=== PATIENT | female | born 1950 | race Caucasian/White ===

== ENCOUNTER 2016-06-30 14:58 | Emergency (ER) | payer OTHER ==
[2016-06-30] MEDS ORDERED: LORazepam 2 MG/ML DISP.SYRIN IV ONE (15:22)
[2016-06-30] MEDS ORDERED: METOPROLOL TARTRATE 1 MG/ML AMPUL IV ONE ×2 (15:33→16:28)
[2016-06-30] MEDS ORDERED: HYDROCHLOROTHIAZIDE 25 MG TABLET PO ONE (15:33)
--- NOTE | 2016-06-30 15:37 | ERNOTE ---
Dizziness ER Record Date of Service: 06/30/16 Presenting Symptoms: dizziness, weakness Time Seen by Provider: 06/30/16 15:09 Source: patient, family - Exam Limitations: no limitations Allergies/Adverse Reactions: Allergies Allergy/AdvReac Type Severity Reaction Status Date / Time dye Allergy Uncoded 06/30/16 15:08 Home Medications: HOME MEDICATIONS Nabumetone 500 mg PO DAILY 06/12/12 [Last Taken Unknown] Metoprolol Succinate 50 mg PO DAILY 06/10/13 [Last Taken Unknown] Cholestyramine (with Sugar) [Questran Packet] 4 gm PO DAILY 06/30/16 [Last Taken Unknown] LORazepam [Ativan] 0.5 mg PO Q8H PRN #12 tablet 06/30/16 [Last Taken Unknown] Levothyroxine Sodium [Synthroid] 50 mcg PO DAILY 06/30/16 [Last Taken Unknown] Lisinopril [Zestril] 20 mg PO DAILY 06/30/16 [Last Taken Unknown] Multivitamin [One Daily Essential] 1 each PO DAILY 06/30/16 [Last Taken Unknown] - History of Present Illness Narrative: Patient who comes due to problem in balance and weak since 04:00 today. Patient reported that she has no spinning, has no loss consciousness, and has no nausea. Patient with an on and off headache that comes and goes and is associated with the dizziness. Patient also reported some chest pain. Date (Duration): 06/30/16 Time (Timing): 04:00 Timing and Duration: still present, intermittent Episodes lasting:: Minutes Noted on awakening:: Yes Severity: max: moderate Severity: currently: moderate Associated Symptoms: Present: headache, weakness, numbness, light headedness. Absent: hearing loss, ringing/roaring in ear, ear pain, vomiting, sweating, sense of confusion Sense of movement: Present: none - balance. Absent: spinning, falling, vague, distinct, other Fainted/near fainted while:: Absent: standing, sitting, supine Decreased ability to stand/walk:: Present: off balance Usually:: Present: walks w/o assistance Modifying Factors - (Improves): Reports: nothing Modifying Factors - (Worsens): Reports: nothing Prior Treament: Reports: recently seen - Patient was seen at [place] where an aneurysm was coiled on 2015 Review of Systems - Review of Systems Constitutional: Present: weakness, malaise. Absent: fever, chills EYE: Absent: eye discharge, blurred vision, double vision, vision changes, tearing ENT: Present: no symptoms reported Respiratory: Present: cough Cardiology: Present: chest pain. Absent: syncope, edema Gastrointestinal/Abdominal: Present: no symptoms reported Genitourinary: Present: no symptoms reported Musculoskeletal: Present: no symptoms reported Skin: Present: no symptoms reported Neurological: Present: headache, dizziness/light-headedness, weakness. Absent: anxiety, depressed, emotional problems, seizure, tremors Endocrine: Present: no symptoms reported Hematologic/Lymphatic: Present: no symptoms reported Psych: Present: no symptoms reported All Other Systems: All systems neg except as marked - Patient's Past Medical History Patient History - Medical: Hypothyroidism, Other - History of Multiple Brain Aneurysm Patient History - Cardiac/Respiratory: Hypertension, Hyperlipidemia Patient History - Cancer: No Hx of Cancer Patient History - Other: None - Social History Living Situations: home Psych History: No pertinent hx Drug Use: none Physical Exam - Physical Exam General Appearance: Present: wd/wn, alert, no apparent distress Eye Exam: Normal inspection: bilateral, PERRL: bilateral, EOMI: bilateral, Other : bilateral - Nystagmus noticed Ears, Nose, Throat: Present: normal ENT inspection, normal pharynx Neck: Present: normal inspection, nontender. Absent: carotid bruit Respiratory: Present: no respiratory distress, normal breath sounds, no accessory muscle use, chest nontender, lungs clear Cardiovascular/Chest: Present: regular rate, rhythm, no murmur, normal peripheral pulses. Absent: systolic murmur, JVD Gastrointestinal/Abdominal: Present: normal bowel sounds, nontender, nondistended, soft, no organomegaly Back Exam: Present: normal inspection, normal range of motion, no CVA tenderness , no vertebral tenderness Extremity Exam: Present: normal inspection, non-tender, normal range of motion, no edema Neurological Exam: Present: alert, oriented, it training specialist II-XII nml as tested, other - GCS: 15/15, NIH Stroke Scale: 0 Skin Exam: Present: normal color, warm/dry. Absent: diaphoresis, cyanosis, jaundice, pallor, skin rash Lymphatic Exam: Present: no adenopathy ED Progress - Date and Time Seen: Date and Time: 06/30/16 15:43 Patient MRI/MRA is been delay due to the lack of information regarding the materials used for coiling. At this point we are calling [place] [facility] to get copy of card. Patient send home to get her papers. 06/30/16 17:59 NIH Stroke Scale: 0 Patient with a negative MRI/MRA no ST Elevation. Patient at the moment is feeling better. Patient will follow up with her PCP and Neurosurgeon. Patient at the moment has no neurological deficits. - Results and Orders Patient's Lab Results:: I have reviewed the patient's lab results. Results and Orders: CBC: No anemia CMP: Negative Trop: Negative INR: Normal - Vital Signs Patient's Vital Signs:: I have reviewed the patient's vital signs. Vital Signs: Vital Signs 06/30/16 15:02 Temperature 35.7 C L Pulse Rate 80 Respiratory 12 Rate Blood Pressure 151/115 O2 Sat by Pulse 94 Oximetry - EKG EKG: NSR EKG read: Interp. by me EKG Comments: HR: 72, LAD, No changes since 01/13/2016 - X-Ray X-Ray #1 X-Ray: chest X-ray Comments: Radiologist Report was noticed: No acute processes reported. - CT/Ultrasound CT/Ultrasound Narrative: CT Head: Radiologist report was read: No acute intracranial process. The scan was limited due to Metallic Artifact corresponding to the embolization / coiling of an aneurysm in the region of the [place]. MRI / MRA: Report was read. No acute process reported. - Progress/Reassessment Chief Complaint: Dizziness Progress:: Improved - Transfer of Care Expected Disposition: Discharge Departure Clinical Impression: Dizziness Headache Qualifiers: Headache type: unspecified Headache chronicity pattern: unspecified pattern Intractability: not intractable Qualified Code(s): R51 - Headache - Departure Disposition: Home self-care Condition: Stable Instructions: Vertigo, [id number], Headache and Arthritis, Dizziness, Easy-to -Read Additional Instructions: Please follow with your neurologist and neurosurgeon. Get copy of your MRI/MRA for your next visit. Referrals: Flor Chávez MD [Primary Care Provider] - Prescriptions: LORazepam [Ativan] 0.5 mg PO Q8H PRN #12 tablet PRN Reason: Anxiety
[2016-06-30 15:42] LABS: Hematocrit 40.7 % (37.0-47.0); Hemoglobin 14.5 gm/dL (12.5-16.0); Mean Cell Volume 87.9 fl (78-100); Mean Corpuscular Hemoglobin 31.3 pg (27-31); Mean Corpuscular Hgb Conc 35.6 g/dl (32-36); Neutrophil # 3.6 K/mm3 (1.3-6.0); Neutrophil % 61.5 % (42-75.0); Platelet Count 286 K/mm3 (150-450); Red Blood Count 4.63 M/mm3 (4.2-5.4); Red Cell Distribution Width 13.1 % (11.5-14.0); White Blood Count 5.9 K/mm3 (4.0-10.5)
[2016-06-30 16:01] LABS: Prothrombin Time (Patient) 10.8 Seconds (9.4-11.4)
[2016-06-30 16:07] LABS: Albumin * 4.3 gm/dl (3.4-5.0); Anion Gap 17.4 mmol/L (6.8-13.8); BUN/Creatinine Ratio 15.8 (9.0-21.6); Bilirubin, Total 0.7 mg/dL (0.0-1.1); Ca. Corrected For Albumin 8.6 mg/dL (8.4-10.2); Calcium * 9.2 mg/dL (7.9-10.9); Carbon Dioxide 27.4 mmol/L (24-32.6); Potassium 3.8 mmol/L (3.4-4.6); Total Protein 7.6 gm/dL (6.2-8.2)
[2016-06-30] MEDS ORDERED: HYDROCHLOROTHIAZIDE 25 MG TABLET ONE (16:28)
[2016-06-30 16:30] LABS: INR 1.04 INR (0.90-1.10)
[2016-06-30 16:58] LABS: Partial Thrombolplastin Time 24.4 Seconds (24-32)
[2016-06-30 18:35] VITALS: BP 150/76
== END 2016-06-30 18:34 | disposition home or self-care (01) ==
LOC: ER 14:58
DX: R42 Dizziness and giddiness (principal); R51 Headache; I10 Essential (primary) hypertension; E03.9 Hypothyroidism, unspecified; E78.5 Hyperlipidemia, unspecified; Z87.820 Personal history of traumatic brain injury

== ENCOUNTER 2016-09-22 23:55 | Emergency (ER) | payer OTHER ==
[2016-09-23] MEDS ORDERED: ONDANSETRON 4 MG TAB.RAPDIS PO ONE (00:21)
[2016-09-23] MEDS ORDERED: ACETAMINOPHEN 325 MG TABLET PO ONE (00:21)
[2016-09-23] MEDS ORDERED: traMADol HCL 50 MG TABLET PO ONE (00:21)
[2016-09-23] MEDS ORDERED: traMADol HCL 50 MG TABLET ONE (00:24)
[2016-09-23] MEDS ORDERED: ACETAMINOPHEN 325 MG TABLET ONE (00:25)
[2016-09-23] MEDS ORDERED: ONDANSETRON 4 MG TAB.RAPDIS ONE (00:25)
--- NOTE | 2016-09-23 00:31 | ERNOTE ---
Upper Extremity HPI - General Extremities Pain Location: arm: right Time Seen by Provider: 09/22/16 23:57 Source: patient Exam Limitations: no limitations - Immun/Allergies/Home Medications Allergies/Adverse Reactions: Allergies Allergy/AdvReac Type Severity Reaction Status Date / Time codeine AdvReac Verified 09/23/16 00:08 dye Allergy Uncoded 09/23/16 00:08 Home Medications: HOME MEDICATIONS Cholestyramine (with Sugar) [Questran Packet] 4 gm PO DAILY 09/23/16 [Last Taken Unknown] Fluticasone Propionate [Flovent Hfa] 12 gm IH DAILY 09/23/16 [Last Taken Unknown ] Levothyroxine Sodium [Synthroid] 50 mcg PO DAILY 09/23/16 [Last Taken Unknown] Metoprolol Succinate [Toprol Xl] 50 mg PO DAILY 09/23/16 [Last Taken Unknown] Multivitamin [One Daily Multivitamin] 1 each PO DAILY 09/23/16 [Last Taken Unknown] Nabumetone [Relafen] 500 mg PO DAILY 09/23/16 [Last Taken Unknown] - History of Present Illness Narrative: Patient had her right shoulder replaced at the [facility] on 09/06. She had numbness in her thumb through middle finger post op that has resolved. Over the last two days she has had a mild ache in her arm, around 15:00 it got significantly worse. the pain starts in her right elbow and radiates down to her hand mainly the thumb through middle finger. She denies any injuries, rates the pain as severe, tramadol helped a little. She has kept her arm immobilized as instructed except for doing her exercises three times a day. Occurred: this afternoon Method of Injury: Reports: no apparent injury Associated Symptoms: Denies: tingling, weakness Review of Systems - Review of Systems Constitutional: Present: recent illness - three days ago vomiting and diarrhea for one day, symptoms have resolved. Absent: fever, chills ENT: Absent: sore throat Respiratory: Absent: shortness of breath Cardiology: Absent: chest pain Gastrointestinal/Abdominal: Present: nausea. Absent: vomiting, diarrhea, abdominal pain Genitourinary: Present: no symptoms reported Musculoskeletal: Present: See HPI Neurological: Absent: headache, weakness, numbness - Patient's Past Medical History Patient History - Medical: Arthritis, Hypothyroidism, Other - History of Multiple Brain Aneurysm Patient History - Cardiac/Respiratory: Hypertension, Hyperlipidemia Patient History - Cancer: No Hx of Cancer Patient History - Surgical Procedures: Cholecystectomy, Hysterectomy, Total Knee Replacement Patient History - Other: None - Social History Living Situations: home Psych History: No pertinent hx Smoking Status: Former smoker Alcohol Use: occasionally Drug Use: none - Immunizations Immunizations Up to Date: Yes History of Influenza Vaccine: Yes Physical Exam - Physical Exam General Appearance: Present: wd/wn, alert, no apparent distress, anxious Eye Exam: Normal inspection: bilateral Neck: Present: normal inspection, nontender, supple, full range of motion Respiratory: Present: no respiratory distress, normal breath sounds, no accessory muscle use, lungs clear Cardiovascular/Chest: Present: regular rate, rhythm, no murmur, normal peripheral pulses Peripheral Pulses: N=norm/S=strong/W=weak/B=bound/A=absent: Radial (R): Normal Extremity Exam: Present: normal inspection, other - wound covered, no surrounding erythema, no tenderness, no swelling, normal inspection of remainder of the arm, no significant tenderness to palpation, no pain on ROM, normal limited ROM exam, minimal swelling of fingers, normal sensation and cap refill Neurological Exam: Present: alert, oriented, normal mood/affect, no motor/ sensory deficits Skin Exam: Present: normal color, warm/dry ED Progress - Vital Signs Patient's Vital Signs:: I have reviewed the patient's vital signs. - CT/Ultrasound CT/Ultrasound Narrative: U/S: venous doppler: no DVT , superficial thrombus - Progress/Reassessment Progress Note-Subjective: 09/23/16 01:47 Patient feeling much better after pain medication, discussed ultrasound results 09/23/16 01:53 patient blood pressure elevated, denies headache, has blood pressure cuff at home, discussed taking her medications in the morning and taking her blood pressure an hour later, return to the ER for persistent high blood pressure Departure Clinical Impression: Neuropathic pain S/P shoulder joint replacement Qualifiers: Laterality: unspecified laterality Qualified Code(s): Z96.619 - Presence of unspecified artificial shoulder joint - Departure Disposition: Home self-care Condition: Good Instructions: Shoulder Joint Replacement, Care After, Neuropathic Pain Additional Instructions: take tramadol as instructed take over the counter tylenol (325mg) two tablets four times a day follow up with your surgeon after the weekend as scheduled Referrals: Flor Chávez MD [Primary Care Provider] -
--- OUTSIDE RECORDS SUMMARY | 2016-09-23 00:43 | XMS REPORT | Continuity of Care Document ---
:1950 Author Organization [facility] ([facility]) Address [address] [place] [address] Phone [phone] Care Team Providers Name Role Phone Flor Chávez Primary Care Provider [phone] Source Comments This disclosure is being made pursuant to the Care Everywhere program, applicable federal and state laws, and may not contain all informaitonavailable regarding this patient.[facility] ([facility]) Active Allergies and Adverse Reactions Allergen Noted Date Severity Reactions Comments Codeine 03/09/2016 Nausea & Vomiting Fd And C Blue No.1 11/05/2008 High Anaphylactic Shock Given a dye to look at kidneys, bad reaction Lisinopril 08/29/2016 OTHER Cough Current Medications Prescription Sig. Disp. Refills Start Date End Date Status MULTIVITS take 1 Tab by Active W-CA,FE,OTHER MIN mouth daily. (WOMEN'S DAILY FORMULA PO) cholestyramine 4 Take 4 g by Active gram oral powder mouth daily. estradiol 0.5 mg Take 0.5 mg by Active tablet mouth daily. levothyroxine 50 Take 50 mcg by Active mcg tablet mouth every morning before breakfast. metoPROLol 100 mg daily. 01/28/2016 Active succinate 50 mg XL tablet fluticasone Use 2 Puffs by Active (FLOVENT HFA 44) inhalation 2 inhaler times daily. traMADol 50 mg Take 1 tablet 60 tablet 0 09/07/2016 Active tablet (50 mg total) by mouth every 6 hours as needed for pain. docusate (COLACE) Take 1 capsule 60 capsule 2 09/07/2016 Active 100 mg capsule (100 mg total) by mouth 2 times daily. aspirin 325 mg EC Take 1 tablet 42 tablet 0 09/07/2016 Active tablet (325 mg total) by mouth daily. acetaminophen 325 Take 2 tablets 09/07/2016 Active mg tablet (650 mg total) by mouth every 4 hours as needed (Do not exceed 4000 mg in 24 hours). ondansetron 4 mg Take 1 tablet 20 tablet 0 09/07/2016 Active disintegrating (4 mg total) by tablet mouth every 8 hours as needed. nabumetone 500 mg Take 500 mg by Discontinued tablet mouth daily. 7 acetaminophen 325 Take 325 mg by Discontinued mg tablet mouth every 4 7 hours as needed. lisinopril 20 mg 06/26/2016 Discontinued tablet 7 Active Problems Problem Noted Date Acute blood loss anemia 09/07/2016 PONV (postoperative nausea and vomiting) 09/07/2016 Obesity, Class I, BMI 30-34.9 09/07/2016 HLD (hyperlipidemia) 09/07/2016 HTN (hypertension) 09/07/2016 Hypothyroid 09/07/2016 Chronic right shoulder pain 09/06/2016 Osteoarthritis of right glenohumeral joint 07/19/2016 Cerebral aneurysm, nonruptured 03/09/2016 Left shoulder pain 04/14/2014 Right shoulder pain 07/10/2013 Left knee crepitus 03/18/2013 S/P right unicompartmental knee replacement 11/08/2012 S/P left unicompartmental knee replacement 11/08/2012 Visit for wound check 11/08/2012 H/O seasonal allergies 10/24/2012 Resolved Problems Problem Noted Date Resolved Date Shoulder pain, left 03/06/2013 07/10/2013 Primary osteoarthritis of both knees 10/15/2012 11/08/2012 Knee pain 11/04/2008 11/08/2012 Most Recent Encounters Date Type Specialty Providers Description 09/14/2016 Telephone Orthopaedic Brandon Tejeda V, Chief Comp: Other 09/11/2016 Nurse Triage Care Coordination Hannah Rojas Chief Comp: MARÍA ELENA Cuellar health policy analyst Follow-up Call 09/08/2016 Pharmacy Visit 09/06/2016 - [facility] Care Brandon Tejeda V, Dx: Chronic right 09/08/2016 Encounter Inpatient - Adult shoulder pain (Primary Dx) 09/06/2016 Surgery General Surgery Brandon Tejeda V, ARTHROPLASTY SHOULDER MD STINSON / SARIKA 08/31/2016 Anesthesia Event General Surgery Sho Reina RN 08/30/2016 Orders/Notes Orthopaedic Ralf Koch PA-C 08/29/2016 Office Visit Internal Medicine - Default, Other Dx: Pre-op exam Specialty Billg - Defo (Primary Dx) Meghan Joseph MD ([id number]), Msc Surg Co-Managemnt Cl 08/29/2016 Office Visit Pathology Brandon Tejeda V, Chief Comp: Patient MD Reported Reason For Lab Services, Visit Pfp 08/29/2016 Office Visit Orthopaedic Brandon Tejeda V, Dx: Preop examination MD (Primary Dx) 08/07/2016 Orders/Notes Orthopaedic Brandon Milner, Dx: Chronic right MD shoulder pain (Primary Dx) 07/31/2016 Office Visit Orthopaedic Brandon Tejeda V, Dx: Multiple joint MD pain (Primary Dx) 07/31/2016 [facility], Dx: Right shoulder Encounter Serge Albright MD pain 07/12/2016 Telephone Neurosurgery Marily Hein Chief Comp: Anesthesia Preoperative Screening 07/03/2016 Office Visit Orthopaedic Brandon Tejeda V, Dx: Osteoarthritis of MD right glenohumeral joint (Primary Dx) Social History Tobacco Use Types Packs/Day Years Used Date Former Smoker Cigarettes 0.5 20 Quit: 09/06/1989 Smokeless Tobacco: Never Used Alcohol Use Drinks/Week oz/Week Comments Yes 2 Glasses of wine 1.0 Last Filed Vital Signs Vital Sign Reading Time Taken Blood Pressure 145/79 09/08/2016 7:55 AM CDT Pulse 87 09/08/2016 7:55 AM CDT Temperature 36.1 C (97 F) 09/08/2016 7:55 AM CDT Respiratory Rate 16 09/08/2016 7:55 AM CDT Height 1.626 m (5' 4") 09/06/2016 6:20 PM CDT Weight 81.647 kg (180 lb) 09/06/2016 6:20 PM CDT Body Mass Index 30.88 09/06/2016 6:20 PM CDT Oxygen Saturation 97% 09/08/2016 7:55 AM CDT Plan of Care Date Type Specialty Providers Description 09/26/2016 Appointment Orthopaedic Brandon Tejeda MD [address] [place] [address] [phone] (Fax) Chief Comp: Patient Ralf Koch PA-C [address] [place] [address] [phone] (Fax) Reported Reason For Visit 10/24/2016 Appointment Orthopaedic Brandon Tejeda MD [address] [place] [address] [phone] (Fax) Chief Comp: Patient Ralf Koch PA-C [address] [place] [address] [phone] (Fax) Reported Reason For Visit Health Maintenance Due Date Last Done Comments HCV Screening 1950 Hepatitis B Vaccine (1 of 3 - Primary Series) 1950 Tdap Vaccine 12/26/1963 Lipid Disorder Screening 1970 Td Vaccine 1970 Cervical Cancer Screening 1982 Mammogram 1992 Colonoscopy 2002 Zoster Vaccine 2012 Influenza Vaccine: Seasonal (Season Ended) 2016 Procedures from Last 3 Months Procedure Name Priority Date/Time Associated Diagnosis Comments ABSTRACTED BY Routine 09/21/2016 5:14 Osteoarthritis of Results for this BILLING STAFF PM CDT right glenohumeral procedure are in joint the results section. 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 Results from Last 3 Months ORT OR CASE (09/21/2016 5:14 PM) Narrative Brandon Tejeda MD 09/21/20165:14 PM OR CASE: ARTHROPLASTY SHOULDER BIOMET / BAUM Post-Op Procedure Note Operation/Procedure: Procedure(s) (LRB): ARTHROPLASTY SHOULDER BIOMET / BAUM (Right) General Information: Date: 09/06/16 Time: 1236 Location: MAIN OR OR Room: MAIN OR Service: Orthopaedics Log ID: [id number] Surgeon: Surgeon(s) and Role: * Brandon Tejeda MD - Primary * Monster Moy MD - Resident - Assisting * Ralf Koch PA-C - Physician's Entry Level Account Executive Staff Information: Circulating Nurse: David Quezada, EB; Mer Tejada RN Principal Solutions Architect- Scrub: Trip Jin; Luke Lemus Anesthesia: General with Block for Postop Pain Findings: No unexpected findings, see below. Estimated Blood Loss: less than 100 ml Implants: Implant Name Type Inv. Item Serial No. Roll Grinder Lot No. LRB No. Used Action CEMENT SURGICAL SIMPLEX P RADIOPAQUE BONE 1/2 DOSE - [id number] CEMENT SURGICAL SIMPLEX P RADIOPAQUE BONE 1/2 DOSEHOWMEDICA_INC [id number] Right 1 Implanted SHOULDER GLENOID BASE MEDIUM 4MM HYBRID - [id number] GLENOID BASE MEDIUM 4MM HYBRIDBIOMET_INC [id number] Right 1 Implanted SHOULDER ADAPTER COMPREHENSIVE VERSA-DIAL STANDARD - [id number] SHOULDER ADAPTER COMPREHENSIVE VERSA-DIAL STANDARDBIOMET_INC [id number] Right 1 Implanted SHOULDER PRIMARY STEM COMPREHENSIVE STANDARD LENGTH 11MM - [id number] PRIMARY STEM COMPREHENSIVE STANDARD LENGTH 11MMBIOMET_INC [id number] Right 1 Implanted SHOULDER HUMERAL HEAD VARI OFFSET 42 X 18 X 46MM VERSA-DIAL - [id number] SHOULDER HUMERAL HEAD VARI OFFSET 42 X 18 X 46MM VERSA-DIAL BIOMET_INC [id number] Right 1 Implanted Specimens: * No specimens in log * Complications: None; patient tolerated the procedure well. Condition: PACU - hemodynamically stable. Return to the OR planned in the next 30 days? No Readmission planned in the next 30 days? No BMI=30.26 kg/(m^2) Operative Report Completion Pre-op Diagnosis: * Chronic right shoulder pain [M25.511, G89.29] Post-op Diagnosis: Right glenohumeral osteoarthritis Indications/Procedure Details: The patient was identified in the preoperative holding area.The right shoulder was marked.The [facility] where she received a regional anesthetic block.The patient was brought to the operating room.The patient was placed in a supine position on the operating room table.General anesthesia was induced.Preoperative antibiotics were administered.A murphy catheter was then sterilely placed without complication.The patient was sat upright in the beach chair position and all prominences were padded. The head was secured with the neck in a neutral position. The patients right shoulder and upper extremity were then prepped and draped in sterile fashion.The patient, the procedure, and operative site were verified with a multidisciplinary time out. A standard deltopectoral incision was made beginning just superior to the coracoid process, extending distally and laterally to the approximation of the deltoid insertion.Sharp dissection was carried down through the skin and subcutaneous tissue.Cautery was used for hemostasis.The deltopectoral interval was identified; the cephalic vein was mobilized laterally with the deltoid tissues.Blunt dissection was then carried out down through clavipectoral fascia, extending proximally, allowing mobilization within the subacromial space and medially to the coracoid process.A self-retaining shoulder retractor was inserted, allowing visualization of the subscapularis tendon.This was incised 5 -10 millimeters from its insertion, leaving a cuff of tissue for later repair.The shoulder capsule was also incised along this interval. The axillary nerve was identified through palpation and was carefully protected throughout the case. Using a combination of extension and external rotation, the humeral head was then dislocated anteriorly, allowing us to begin preparation of the humeral shaft. All peripheral osteophytes were removed with a combination of a chisel, mallet, and large rongeur. An entry reamer was inserted along the axis of the humeral shaft, just lateral to the articular surface of the humeral head.This was inserted into the intramedullary canal.We reamed up to a size 11 and then left this reamer in place and placed the resection guide onto this, judging for 30 degrees of retroversion of the humeral head. Two drill pins were inserted to hold the guide block into place and then a saw was used to resect the head. We then began humeral broaching and did so up to a size 11.We were careful to maintain the appropriate retroversion. After tapping down the last broach, we left this in place with a cap overlying to protect the edges of our cut.We then moved on to the glenoid portion of the procedure. The glenoid was then exposed using a combination of retractors. The anatomic glenoid sizer was placed and judged to be a size 42. The centering peg was then drilled and the glenoid was reamed down to bleeding subchondral bone in all areas.The anatomic drill guide was then placed, the appropriate pins drilled, including the center peg.A Systek was used to irrigate. Cement was then prepared on the back table and injected into the predrilled holes.The size 42 final glenoid component was placed and held with finger pressure until the cement was completely dry. We then removed the trial humeral components and irrigated with a Systek. We then placed the shoulder stem and impacted this until it was firmly seated being careful to maintain appropriate version.The head and adaptor were impacted into place using the D position on the Versadial.The shoulder was reduced and the components were located. The shoulder was taken through a range of motion without complication. Copious pulsatile irrigation was then run through the wound.The anterior capsule and subscapularis tendon were reapproximated #2 Tycron in interrupted fashion.The deltopectoral interval was closed.The cephalic vein was not preserved. We marked the interval with 2 #2 Tycron stitches cut to 2 cm length to allow for identification of this interval at a later date if necessary. The subcutaneous tissue was closed with 2-0 Vicryl.The skin was closed with 3-0 Monocryl and Steri-Strips. A sterile dressing was applied. The patient was placed into a shoulder immobilizer. The patient was laid supine on the operating room table and was extubated successfully.The patient was then transported over to the bed and back to the recovery room in stable condition. Disposition: Admitted Plan: Postoperative plan will be for patient to be admitted for postoperative pain control and physical therapy.The patient will begin physical therapy tomorrow, consisting of pendulums, pulleys, and table slide exercises. Attending Attestation: Brandon Tejeda MD was present for solares portions of the procedure defined as, and was immediately available for the remainder of the procedure. The solares portions are defined as:Component placement. Monster Moy MD RIGHT SHOULDER AP, AXIL& GRASHEY (09/07/2016 9:31 AM) Impressions Findings / Impression: Interval post surgical changes of right total shoulder arthroplasty without evidence of hardware complication. Narrative Procedure: RIGHT SHOULDER AP, AXIL & GRASHEY Clinical Indication: Status post total shoulder was Comparison: 04/11/2016 Procedure Note Primo, Incoming Imaging Results - Cristina September 07, 2016 3:59 PM CDT Procedure: RIGHT SHOULDER AP, AXIL & GRASHEY Clinical Indication: Status post total shoulder was Comparison: 04/11/2016 IMPRESSION Findings / Impression: Interval post surgical changes of right total shoulder arthroplasty without evidence of hardware complication. CREATININE (09/07/2016 8:03 AM) Component Value Range Creatinine 0.6Comment: 0.5-1.0 mg/dL Creatinine switched to enzymatic method on 09/06/2010.GFR equation switched to IDMS-traceable MDRD equation on 09/06/2010. Calculated GFR values are not valid in clinical settings where serum creatinine is changing. Calculated GFR >90 >60 mL/min/1.73 m2 Specimen Blood BLOOD UREA NITROGEN (09/07/2016 8:03 AM) Component Value Range BUN 15 10-20 mg/dL Specimen Blood CO2 (09/07/2016 8:03 AM) Component Value Range CO2 23 22-29 mEq/L Anion Gap 16 <17 mEq/L Specimen Blood CHLORIDE (09/07/2016 8:03 AM) Component Value Range Chloride 98 95-107 mEq/L Specimen Blood POTASSIUM (09/07/2016 8:03 AM) Component Value Range Potassium 3.9 3.5-5.0 mEq/L Specimen Blood SODIUM (09/07/2016 8:03 AM) Component Value Range Sodium 137 135-145 mEq/L Specimen Blood HEMATOCRIT (09/07/2016 8:03 AM) Component Value Range Hematocrit 32(L) 35-47 % Specimen Whole Blood HEMOGLOBIN (09/07/2016 8:03 AM) Component Value Range Hemoglobin 11.2(L) 11.9-15.5 g/dL Specimen Whole Blood PERIPHERAL NERVE BLOCK (09/06/2016 12:39 PM) Narrative Tian Maria MD 09/06/2016 12:39 PM Procedure: Interscalene Pre-Procedure Block Performed: Pre-op Indication: Post-op Analgesia Pre-Procedure Vitals HR:73 Blood pressure:171/88 SpO2:98 Procedure Laterality: Right Position: Supine Preparation: ChlorPrep and Sterile Drape/Gloves Technique: Ultrasound guided US used to identify nerve/real time visualization of needle placement & local anesthetic injection & US image captured: Yes Type: Single-Shot Needle: Other (Tuohy) Length: 90 mm Narrative Blood aspirated: No Resistance on injection: Normal Pain on injection: No Paresthesia on injection: No Ease of block performance: Straight forward Start time: 09/06/2016 12:00 PM End time: 09/06/2016 12:36 PM Events: no other event Success: Complete Additional Narrative Comments Interscalene catheter attempted, however unable to be placed in an appropriate position. Hence, switched to single shot interscalene block. Post-Procedure Vitals HR: 77 Blood pressure: 203/104 SpO2: 97 Performed by Anesthesiologist: SESAR VELAZQUEZ TYPE AND SCREEN (BLOOD TYPE(ABORH) AND RBC ANTIBODY SCREEN) (09/06/2016 11:36 AM ) Component Value Range ABORH B Positive Specimen Expiration Date 2016-09-09 Antibody Screen Negative Specimen Blood DIFFERENTIAL (08/29/2016 2:14 PM) Component Value Range % Neutrophils-Auto Diff 62.6 % Neutrophils-Auto Diff 4630 3295-6970 /MM3 % Lymphocytes-Auto Diff 27.3 % Lymphocytes-Auto Diff 2020 875-3300 /MM3 % Monocytes-Auto Diff 8.9 % Monocytes-Auto Diff 660 130-860 /MM3 % Eosinophils-Auto Diff 0.4 % Eosinophils-Auto Diff 30(L) 40-390 /MM3 % Basophils 0.7 % Basophils-Auto Diff 50 10-136 /MM3 % Immature Granulocytes-Auto Diff 0.1 % Immature Granulocytes-Auto Diff 10 /MM3 Specimen Whole Blood CBC (COMPLETE BLOOD COUNT) (08/29/2016 2:14 PM) Component Value Range WBC Count 7.4 3.7-10.5 K/MM3 RBC Count 4.58 4.00-5.20 M/MM3 Hemoglobin 14.5 11.9-15.5 g/dL Hematocrit 40 35-47 % MCV (Mean Corpuscular Volume) 88 82-99 FL MCH (Mean Corpuscular Hemoglobin) 32 25-35 PG MCHC (Mean Corpuscular Hemoglobin Concentration) 36 32-36 % Platelet Count 292 150-400 K/MM3 MPV (Mean Platelet Volume) 9.2(L) 9.4-12.3 FL RBC Dist Width-STD 42.1 36.4-46.3 FL RBC Distrib Width 13.2 9.0-14.5 % Nucleated RBC 0 /100 WBC Specimen Whole Blood COMPREHENSIVE METABOLIC PANEL (CMP) (08/29/2016 2:14 PM) Component Value Range Sodium 139 135-145 mEq/L Potassium 3.8 3.5-5.0 mEq/L Chloride 100 95-107 mEq/L CO2 27 22-29 mEq/L BUN 9(L) 10-20 mg/dL Creatinine 0.6Comment: 0.5-1.0 mg/dL Creatinine switched to enzymatic method on 09/06/2010.GFR equation switched to IDMS-traceable MDRD equation on 09/06/2010. Calculated GFR values are not valid in clinical settings where serum creatinine is changing. Glucose 112(H)Comment: 65-99 mg/dL The Expert Committee on the Diagnosis and Classification of Diabetes has defined impaired fasting glucose as greater than or equal to 100 mg/dL but less than 126 mg/dL.(Diabetes Care 28 (Suppl 1)S41,2005) Calcium 9.6 8.5-10.5 mg/dL Total Protein 6.8 6.0-8.0 g/dL Albumin 4.6 3.4-4.8 g/dL AST 22Comment: 0-32 U/L Adult reference ranges updated on 03/25/13 at 830am ALP 79 35-104 U/L Bilirubin Total 0.5 <=1.2 mg/dL ALT 25Comment: 0-33 U/L The upper limit of normal for alanine aminotransferase (ALT) reference ranges for adults is controversial with some authorities recommending limit as low as 30 U/L for males and 19 U/L for females. Th ere is increased incidence of subclinical liver disease (e.g., early steatohepatitis) in patients with ALT values in the range of 31-41 U/L for males and 20-33 U/L for females. ALT values should alway s be interpreted in conjunction with clinical history, physical examination findings, and, if applicable, data from other diagnostic tests. Anion Gap 12 <17 mEq/L Calculated GFR >90 >60 mL/min/1.73 m2 Specimen Blood CBC WITH DIFFERENTIAL (08/29/2016 2:14 PM) Specimen Whole Blood Narrative The following orders were created for panel order CBC WITH DIFFERENTIAL. Procedure Abnormality Status --------- ------ CBC (COMPLETE BLOOD COUNT)[[id number]] AbnormalFinal result DIFFERENTIAL[[id number]] AbnormalFinal result Please view results for these tests on the individual orders. ERYTHROCYTE SEDIMENTATION RATE (07/31/2016 7:10 PM) Component Value Range ESR (Erythrocyte Sedimentation Rate) 5 0-20 mm/Hr Specimen Whole Blood C-REACTIVE PROTEIN (07/31/2016 7:10 PM) Component Value Range CRP (C-Reactive Protein) <0.5 <=0.5 mg/dL Specimen Blood HLA B27 (07/31/2016 7:10 PM) Component Value Range HLA-B27 Typing Positive(A)Comment: Negative INTERPRETIVE INFORMATION: HLA-B27 HLA-B27 is a serologically defined allele of the human HLA-B locus. The presence of the HLA-B27 antigen is strongly associated with ankylosing spondylitis and related disorders. Test developed and characteristics determined by [facility]. See Compliance Statement B: [facility] Performed by [facility], [address] [place] [address] [email or web address], Alexander Medina MD, Lab. Director Specimen Blood Narrative Specimen Source: Specimen Start Date: CT RIGHT SHOULDER WO CONTRAST ([id number]) (07/31/2016 3:18 PM) Impressions Impression: 1. 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 2. Severe degenerative changes of the glenohumeral joint. There are some erosive changes of the glenoid surface. 3. Os acromiale. Narrative Procedure: CT RIGHT SHOULDER WO CONTRAST ([id number]) Clinical Indication: right shoulder pain - eval bony architecture and glenoid bone stock Comparison: None. Technique: CT of the right shoulder was performed without contrast. Coronal and sagittal reformations were performed. Findings: There are severe degenerative changes of the glenohumeral joint. There are some erosive changes at the glenoid surface. Glenoid bone stock measures 22 mm at the level of the coracoid process. There is an os acromiale. There is no fracture or dislocation. Mild multilevel degenerative changes throughout the cervicothoracic spine. There is a calcified granuloma within the right upper lobe. Dependent atelectasis within the visualized lung. No infiltrate or consolidation. Procedure Note Primo, Incoming Imaging Results - SunAug 01, 2016 4:52 PM CDT Procedure: CT RIGHT SHOULDER WO CONTRAST ([id number]) Clinical Indication: right shoulder pain - eval bony architecture and glenoid bone stock Comparison: None. Technique: CT of the right shoulder was performed without contrast. Coronal and sagittal reformations were performed. Findings: There are severe degenerative changes of the glenohumeral joint. There are some erosive changes at the glenoid surface. Glenoid bone stock measures 22 mm at the level of the coracoid process. There is an os acromiale. There is no fracture or dislocation. Mild multilevel degenerative changes throughout the cervicothoracic spine. There is a calcified granuloma within the right upper lobe. Dependent atelectasis within the visualized lung. No infiltrate or consolidation. IMPRESSION Impression: 1. 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 2. Severe degenerative changes of the glenohumeral joint. There are some erosive changes of the glenoid surface. 3. Os acromiale.
[2016-09-23 01:50] VITALS: BP 183/100
== END 2016-09-23 01:54 | disposition home or self-care (01) ==
LOC: ER 23:55
DX: G62.9 Polyneuropathy, unspecified (principal); Z96.619 Presence of unspecified artificial shoulder joint; I10 Essential (primary) hypertension; E78.5 Hyperlipidemia, unspecified; E03.9 Hypothyroidism, unspecified

== ENCOUNTER 2018-05-08 15:55 | Observation (INO) | payer MEDICARE, OTHER ==
[2018-05-08] MEDS ORDERED: ASPIRIN 81 MG TAB.CHEW PO ONE (16:12)
[2018-05-08 16:27] LABS: Hemoglobin 13.5 gm/dL (12.5-16.0); Mean Corpuscular Hemoglobin 31.3 pg (27-31); Mean Corpuscular Hgb Conc 35.5 g/dl (32-36); Mean Platelet Volume 9.2 fl (8-12.5); Neutrophil # 4.1 K/mm3 (1.3-6.0); Neutrophil % 61.1 % (42-75.0); Platelet Count 249 K/mm3 (150-450); Red Blood Count 4.32 M/mm3 (4.2-5.4); Red Cell Distribution Width 12.7 % (11.5-14.0); White Blood Count 6.8 K/mm3 (4.0-10.5)
[2018-05-08 16:49] LABS: ALT 32 U/L (19-67); AST 24 U/L (0-48); Alkaline Phosphatase * 106 U/L (50-170); Anion Gap 13.2 mmol/L (6.8-13.8); BUN/Creatinine Ratio 20.9 (9.0-21.6); Bilirubin, Total 0.6 mg/dL (0.0-1.1); Blood Urea Nitrogen 14 mg/dL (3-23); Ca. Corrected For Albumin 8.7 mg/dL (8.4-10.2); Carbon Dioxide 25.5 mmol/L (24-32.6); Chloride 102 mmol/L (97-106); Glucose * 147 mg/dL (70-110); Potassium 3.7 mmol/L (3.4-4.6); Sodium 137 mmol/L (132-142); Total Protein 6.8 gm/dL (6.2-8.2); Troponin I Less than 0.017 ng/mL (0.00-0.10)
--- NOTE | 2018-05-08 16:59 | ERNOTE ---
Chest Pain/Cardiac HPI Date of Service: 05/08/18 Chief Complaint: Chest Pain Time Seen by Provider: 05/08/18 16:13 Source: patient, family, RN notes reviewed Exam Limitations: no limitations Immunizations: IMMUNIZATION HX Immunizations Up to Date Yes History of Influenza Vaccine Yes Hx Pneumococcal Vaccination No Allergies/Adverse Reactions: Allergies codeine Adverse Reaction (Verified 05/08/18 16:08) Vomiting dye Allergy (Uncoded 05/08/18 16:08) went limp 20 years ago, during urology procedure Home Medications: HOME MEDICATIONS Multivitamin [One Daily Multivitamin] 1 ea PO DAILY 09/23/16 [Last Taken Unknown] acetaminophen 325 mg tablet 325 mg PO Q6H PRN 11/07/17 [Last Taken Unknown] fluticasone 50 mcg/actuation nasal spray,suspension 2 spray ALAN DAILY 11/07/17 [Last Taken Unknown] cholestyramine (with sugar) 4 gram powder for susp in a packet 4 g PO BID #60 ea 01/24/18 [Last Taken Unknown] rosuvastatin 10 mg tablet 10 mg PO DAILY #90 tab 02/25/18 [Last Taken Unknown] cyclobenzaprine 10 mg tablet 10 mg PO TID PRN #30 tab 02/27/18 [Last Taken Unknown] levothyroxine 50 mcg tablet 50 mcg PO DAILY #90 tab 04/11/18 [Last Taken Unknown] metoprolol succinate ER 100 mg tablet,extended release 24 hr 100 mg PO DAILY #90 tab 04/11/18 [Last Taken Unknown] Aspirin 81 mg PO 05/08/18 [Last Taken Unknown] Pain Score #1 Pain Score: 0 Narrative: Linsey is a 67 year old female who presents to the ED for chest pain. This has been happening off and on for approximately a month. She experienced chest heaviness with exertion that resolved with rest. She has also noticed that she become short of breath with exertion more easily. She was walking on the track at about 1400 this afternoon when she began having pain in the middle of her chest. She reports that this was worse than what she usually experiences. She had been just having "heaviness" in the right chest, but today she had midsternal pain. This resolved once she sat down and rested. The severity of her symptoms today prompted her to contact her PCP for an appointment. She was directed to come here for evaluation. Date (Duration): 05/08/18 Time (Timing): 14:00 Timing: resolved prior to arrival Severity/Quality: severe, aching Location: substernal Chest Pain Radiation: no radiation Activities at Onset: activity Modifying Factors - Improves: Present: rest Modifying Factors - Worsens: Present: exercise Nitro Today/Relief: no nitro taken today Aspirin Treatment Today: no aspirin today Associated Symptoms: Absent: dizziness, syncope, cough, shortness of breath, diaphoresis, fever/chills, palpitations, heartburn, nausea, vomiting, abdominal pain, back pain Prior Chest Pain/Cardiac Workup: Reports: stress test - 20 years ago, patient believes was normal. Denies: prior chest pain, heart attack, cardiac cath Prior Treatment: Denies: recently seen Review of Systems - Review of Systems Constitutional: Absent: recent illness, fever, chills, malaise EYE: Present: no symptoms reported ENT: Present: no symptoms reported Respiratory: Absent: shortness of breath, cough, orthopnea Cardiology: Present: chest pain. Absent: palpitations, syncope, edema Gastrointestinal/Abdominal: Absent: nausea, abdominal pain Genitourinary: Present: no symptoms reported Musculoskeletal: Absent: muscle pain, joint pain Skin: Absent: rash, lesions Neurological: Absent: headache, dizziness/light-headedness Endocrine: Present: no symptoms reported Hematologic/Lymphatic: Absent: easy bruising, easy bleeding Psych: Absent: anxiety, depressed Medical History (Last Reviewed 05/08/18 @ 16:59 by Becky Chandra NP) Bulging discs Onset Date: ~03/10/04 Cholecystitis Onset Date: ~1999 Degenerative joint disease of knee Onset Date: ~03/13/12 Hallux rigidus Onset Date: ~03/30/13 Headache Onset Date: Unknown Hernia Onset Date: Unknown Hypertension Onset Date: ~01/14/13 Radiculopathy Onset Date: ~03/10/04 Cerebral aneurysm Onset Date: ~03/10/16 Surgical History: Surgical History (Last Reviewed 05/08/18 @ 16:59 by Becky Chandra NP) History of arthroscopic knee surgery Onset Date: ~2003 History of brain surgery Onset Date: ~2015 brain-put coils in History of cholecystectomy Onset Date: ~1999 lap History of colonoscopy Onset Date: 01/17/18 04/10/06. 01/17/18 Naren-normal. History of hand surgery Onset Date: ~2005 bilateral History of hernia repair Onset Date: ~05/19/94 Dr Richter-left x1. right x2 History of hysterectomy Onset Date: ~1975 vaginal History of partial knee replacement bilateral History of total shoulder replacement 08/2016 right. 06/13/17-left Family History: Family History (Last Reviewed 05/08/18 @ 16:59 by Becky Chandra NP) Father , age 80-brain aneurysm Diabetes Renal failure on dialysis Mother Hypertension Brother Alive and well 2 brothers Sister Alive and well Social History: Preferred Language Puerto Rican Do you have any jehovah's witness or Yes: caodaism cultural preference? Smoking Status Current every day smoker Have you smoked in the past 12 No months Do you dip or chew tobacco No Abuse History No History of abuse Psych History No pertinent hx Alcohol Use occasionally Drug Use none (Last Updated 02/12/18 @ 11:43 by Flor Chávez MD) No Social History Section defined Physical Exam - Physical Exam General Appearance: Present: wd/wn, alert, no apparent distress Head Exam: Present: normal inspection Eye Exam: Normal inspection: bilateral Neck: Present: normal inspection, nontender, supple, full range of motion Respiratory: Present: no respiratory distress, normal breath sounds, no accessory muscle use, chest nontender, lungs clear Cardiovascular/Chest: Present: regular rate, rhythm, no murmur, normal peripheral pulses Gastrointestinal/Abdominal: Present: nontender, nondistended, soft Extremity Exam: Present: normal inspection, normal range of motion, no edema Neurological Exam: Present: alert, oriented, normal mood/affect, no motor/sensory deficits Skin Exam: Present: normal color, warm/dry Progress - Results and Orders Patient's Lab Results:: I have reviewed the patient's lab results. - Vital Signs Patient's Vital Signs:: I have reviewed the patient's vital signs. Vital Signs: Vital Signs 05/08/18 15:55 05/08/18 16:08 Temperature 37.0 C 37.0 C Pulse Rate 73 68 Respiratory Rate 14 14 Blood Pressure 158/101 H 158/101 H O2 Sat by Pulse Oximetry 98 98 - EKG EKG: NSR, nonspecific ST T wave changes EKG read: Reviewed by me - X-Ray X-Ray #1 X-Ray: chest Interpretation: Interp. by me X-ray Comments: No acute cardiopulmonary process noted - Progress/Reassessment Chief Complaint: Chest Pain Progress:: Unchanged Plan - Plan Plan: The patient had no recurrence of chest pain while in the ED. Her initial troponin is negative and her EKG shows no indication of ACS. Dr. Ahn was contacted and the patient will be admitted to observation status on Med/Surg to r/o HI. Departure Clinical Impression: Chest pain, rule out acute myocardial infarction - Departure Disposition: Still a patient Condition: Stable Referrals: Flor Chávez MD [Primary Care Provider] -
[2018-05-08] MEDS ORDERED: NITROGLYCERIN 0.4 MG/TAB BTL SL PRN (19:24)
[2018-05-08] MEDS ORDERED: ACETAMINOPHEN 500 MG TABLET PO PRN (19:31)
[2018-05-08] MEDS ORDERED: ONDANSETRON HCL/PF 2 MG/ML VIAL IV PRN (19:32)
--- NOTE | 2018-05-08 19:58 | HP ---
Chief Complaint - Chief Complaint Date of Service: 05/08/18 Time of Service: 19:50 Chief Complaint: I get chest pain for the past 1 month History of Present Illness: 67-year-old female with past medical history of hypertension, hypoth yroidism, IBS, hyperlipidemia, was brought to our ER due to retrosternal sharp chest pain of 6 out of 10 in intensity with no associated symptoms alleviated by rest and worse on exertion. Patient reports that for the past month she has been having chest pain on and off with exertion and at rest but has been pressure-like in nature, but this afternoon while walking at our track the patient sat down to read a book and suddenly had a sharp pain right in the middle of her chest with no radiation to other areas that later spontaneously resolved. Patient then went home but was concerned enough to come to our ER to be evaluated for any cardiac issues. She denies history of heart disease. Medical History (Last Reviewed 05/08/18 @ 16:59 by Becky Chandra NP) Hypothyroid Bulging discs Onset Date: ~03/10/04 Cholecystitis Onset Date: ~1999 Degenerative joint disease of knee Onset Date: ~03/13/12 Hallux rigidus Onset Date: ~03/30/13 Headache Onset Date: Unknown Hernia Onset Date: Unknown Hypertension Onset Date: ~01/14/13 Radiculopathy Onset Date: ~03/10/04 Cerebral aneurysm Onset Date: ~03/10/16 Surgical History: Surgical History (Last Reviewed 05/08/18 @ 16:59 by Becky Chandra NP) History of arthroscopic knee surgery Onset Date: ~2003 History of brain surgery Onset Date: ~2015 brain-put coils in History of cholecystectomy Onset Date: ~1999 lap History of colonoscopy Onset Date: 01/17/18 04/10/06. 01/17/18 Naren-normal. History of hand surgery Onset Date: ~2005 bilateral History of hernia repair Onset Date: ~05/19/94 Dr Richter-left x1. right x2 History of hysterectomy Onset Date: ~1975 vaginal History of partial knee replacement bilateral History of total shoulder replacement 08/2016 right. 06/13/17-left Family History: Family History (Last Reviewed 05/08/18 @ 16:59 by Becky Chandra NP) Father , age 80-brain aneurysm Diabetes Renal failure on dialysis Mother Hypertension Brother Alive and well 2 brothers Sister Alive and well Social History: Patient Lives/Resources With Spouse Utilized Occupation [employer] Preferred Language Occitan Do you have any yarsanism or Yes: Christian cultural preference? Smoking Status Former smoker Have you smoked in the past 12 No months Do you dip or chew tobacco No Abuse History No History of abuse Psych History No pertinent hx Alcohol Use occasionally Drug Use none (Last Updated 02/12/18 @ 11:43 by Flor Chávez MD) No Social History Section defined Peds Patient Hx - Developmental: No Pertinent Hx Peds Patient Hx - Medical: No Pertinent Hx Peds Patient Hx - Cardiac/Respiratory: No Pertinent Hx Peds Patient Hx - Surgical: No Surgical History Patient History - Cancer: No Hx of Cancer Review Of Systems (GEN) - Review of Systems Generalized/Overall Review: Present: No Symptoms Reported EENTM: Present: No Symptoms Reported Respiratory: Present: No Symptoms Reported Cardiac: Present: Chest Pain Abdominal: Present: No Symptoms Reported Genitourinary: Present: No Symptoms Reported Musculoskeletal: Present: No Symptoms Reported Neurological: Present: No Symptoms Reported Skin: Present: No Symptoms Reported Endocrine: Present: No Symptoms Reported Immunizations: IMMUNIZATION HX Immunizations Up to Date Yes History of Influenza Vaccine Yes Hx Pneumococcal Vaccination No Allergies/Adverse Reactions: Allergies Allergy/AdvReac Type Severity Reaction Status Date / Time codeine AdvReac Vomiting Verified 05/08/18 16:08 dye Allergy went limp Uncoded 05/08/18 16:08 Home Medications: HOME MEDICATIONS Multivitamin [One Daily Multivitamin] 1 ea PO DAILY 09/23/16 [Last Taken Unknown] acetaminophen 325 mg tablet 325 mg PO Q6H PRN 11/07/17 [Last Taken Unknown] cholestyramine (with sugar) 4 gram powder for susp in a packet 4 g PO BID #60 ea 01/24/18 [Last Taken Unknown] rosuvastatin 10 mg tablet 10 mg PO DAILY #90 tab 02/25/18 [Last Taken Unknown] levothyroxine 50 mcg tablet 50 mcg PO DAILY #90 tab 04/11/18 [Last Taken Unknown] metoprolol succinate ER 100 mg tablet,extended release 24 hr 100 mg PO DAILY #90 tab 04/11/18 [Last Taken Unknown] Aspirin 81 mg PO DAILY 05/08/18 [Last Taken Unknown] Exam - Exam Vital Signs: Vital Signs - Last Taken Temp 36.4 C 05/08/18 19:14 Pulse 72 05/08/18 19:14 Resp 18 05/08/18 19:14 BP 194/89 H 05/08/18 19:14 Pulse Ox 98 05/08/18 19:14 Constitutional: Present: Alert, Oriented x3, Cooperative, Well developed, Well nourished, No distress, Morbidly obese ENT Exam: Present: normal ENT inspection, hearing grossly normal, pharynx normal, TMs normal Eye Exam: bilateral eye: normal inspection, PERRL, EOMI Neck: Present: non-tender, full range of motion, supple, normal inspection, trachea midline, limited range of motion Back Exam: Present: normal inspection, no CVA tenderness, no vertebral tenderness Breasts: Present: Exam deferred Respiratory: Present: chest non-tender, lungs clear, normal breath sounds, no respiratory distress, no accessory muscle use Cardiovascular/Chest: Present: normal peripheral pulses, regular rate, rhythm, no chest tenderness, no edema, no gallop, no JVD, no murmur Peripheral Pulses: carotid (R): 3+, carotid (L): 3+, femoral (R): 3+, femoral (L): 3+, dorsalis-pedis (R): 3+, dorsalis-pedis (L): 3+, radial (R): 3+, radial (L): 3+ Abdomen: Present: Normal bowel sounds, soft, nontender, nondistended, no rebound tenderness, no hepatospenomegaly, no masses, obese /Rectal: Present: Exam deferred Extremity: Present: normal range of motion, non-tender, normal inspection, no pedal edema, no calf tenderness Skin Exam: Present: normal color, warm/dry, no cyanosis Lymphatic: Present: no adenopathy 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, normal cerebellar test, no motor/sensory deficits, alert, normal mood/affect, oriented x 3 Appearance: Present: appropriate appearance, appropriate insight, neat, no memory impairment Eye contact: Present: cooperative, good eye contact, normal speech Thoughts: Present: normal thought pattern Diagnostic Studies: Abnormal Lab Results 05/08/18 05/08/18 Range/Units 16:15 16:15 MCH 31.3 H (27-31) pg Monocytes % 10.7 H (0.0-9) % Random Glucose 147 H (70-110) mg/dL Laboratory Results WBC 6.8 K/mm3 (4.0-10.5) 05/08/18 16:15 RBC 4.32 M/mm3 (4.2-5.4) 05/08/18 16:15 Hgb 13.5 gm/dL (12.5-16.0) 05/08/18 16:15 Hct 38.0 % (37.0-47.0) 05/08/18 16:15 MCV 88.0 fl (78-100) 05/08/18 16:15 MCH 31.3 pg (27-31) H 05/08/18 16:15 MCHC 35.5 g/dl (32-36) 05/08/18 16:15 RDW 12.7 % (11.5-14.0) 05/08/18 16:15 Plt Count 249 K/mm3 (150-450) 05/08/18 16:15 MPV 9.2 fl (8-12.5) 05/08/18 16:15 Immature Gran % (Auto) 0.10 % (0.001-0.429) 05/08/18 16:15 Immature Gran # (Auto) 0.01 K/mm3 (0.000-0.0310) 05/08/18 16:15 Neutrophils % 61.1 % (42-75.0) 05/08/18 16:15 Lymphocytes % 24.7 % (20-51) 05/08/18 16:15 Monocytes % 10.7 % (0.0-9) H 05/08/18 16:15 Eosinophils % 2.4 % (0.0-3.0) 05/08/18 16:15 Basophils % 1.0 % (0.0-1.0) 05/08/18 16:15 Nucleated RBC % 0.0 k/mm3 (0-1) 05/08/18 16:15 Neutrophils # 4.1 K/mm3 (1.3-6.0) 05/08/18 16:15 Lymphocytes # 1.67 k/mm3 (1.5-3.5) 05/08/18 16:15 Monocytes # 0.7 k/mm3 (0.0-1.0) 05/08/18 16:15 Eosinophils # 0.2 k/mm3 (0.0-0.7) 05/08/18 16:15 Absolute Basophils 0.1 k/mm3 (0.0-0.1) 05/08/18 16:15 Sodium 137 mmol/L (132-142) 05/08/18 16:15 Plasma Sodium 138 mmol/L (130-142) 05/08/18 16:15 Potassium 3.7 mmol/L (3.4-4.6) 05/08/18 16:15 Chloride 102 mmol/L (97-106) 05/08/18 16:15 Carbon Dioxide 25.5 mmol/L (24-32.6) 05/08/18 16:15 Anion Gap 13.2 mmol/L (6.8-13.8) 05/08/18 16:15 BUN 14 mg/dL (3-23) 05/08/18 16:15 Creatinine 0.67 mg/dL (0.4-1.4) 05/08/18 16:15 Est GFR (Non-Af Amer) 94 mL/min (60-130) 05/08/18 16:15 BUN/Creatinine Ratio 20.9 (9.0-21.6) 05/08/18 16:15 Random Glucose 147 mg/dL (70-110) H 05/08/18 16:15 Calcium 9.0 mg/dL (7.9-10.9) 05/08/18 16:15 Calcium Adj for Albumin 8.7 mg/dL (8.4-10.2) 05/08/18 16:15 Total Bilirubin 0.6 mg/dL (0.0-1.1) 05/08/18 16:15 AST 24 U/L (0-48) 05/08/18 16:15 ALT 32 U/L (19-67) 05/08/18 16:15 Alkaline Phosphatase 106 U/L (50-170) 05/08/18 16:15 Troponin I Less than 0.017 ng/mL (0.00-0.10) 05/08/18 16:15 Total Protein 6.8 gm/dL (6.2-8.2) 05/08/18 16:15 Albumin 4.0 gm/dl (3.4-5.0) 05/08/18 16:15 Assessment/Plan - Narrative Narrative: Patient was evaluated in medical chart was reviewed including a EKG that is negative for MA but presents with nonspecific changes which cannot be determined if they are old or new findings at this moment. First set of cardiac troponin is negative, repeat troponin has been ordered as well as an EKG. patient reports complete resolution of the pain and denies any other symptoms, however given the presentation of her symptoms with the will admit her to observation to rule out MA. Dr. Chávez will take over her care in the morning. - Assessment/Plan (1) Ruled out for myocardial infarction Problem: Acute (2) HTN (hypertension) Problem: Acute
[2018-05-08] MEDS ORDERED: METOPROLOL SUCCINATE 50 MG TABLET.SA PO ONE (20:57)
[2018-05-08] MEDS ORDERED: LISINOPRIL 5 MG TABLET ONE (20:58)
[2018-05-08] MEDS ORDERED: LISINOPRIL 2.5 MG TABLET PO ONE (21:00)
[2018-05-08] MEDS ORDERED: ENOXAPARIN SODIUM 40 MG/0.4 ML SYRG SC SCH (21:00)
[2018-05-08] MEDS ORDERED: ROSUVASTATIN CALCIUM 10 MG TABLET PO SCH (21:00)
[2018-05-08] MEDS: CHOLESTYRAMINE/SUCROSE 4 GM PACKET PO SCH (21:01)
[2018-05-08] MEDS: METOPROLOL SUCCINATE 100 MG TABLET.SA PO SCH (21:01)
[2018-05-09] MEDS ORDERED: LEVOTHYROXINE SODIUM 50 MCG TABLET PO SCH (07:00)
[2018-05-09] MEDS ORDERED: MULTIVITAMINS 1 CAP CAPSULE PO SCH (09:00)
[2018-05-09] MEDS: METOPROLOL SUCCINATE 100 MG TABLET.SA PO SCH (09:19)
[2018-05-09] MEDS: CHOLESTYRAMINE/SUCROSE 4 GM PACKET PO SCH (09:20)
--- NOTE | 2018-05-09 10:47 | DS ---
(1) Ruled out for myocardial infarction Problem: Ruled-out (2) HTN (hypertension) Problem: Chronic Description of Stay: 67-year-old female with past medical history of hypertension, hypothyroidism, IBS, hyperlipidemia was admitted to our observation unit for intermittent chest pain of a pressure-like nature of one-month duration. Patient's last episode was yesterday while exercising and walking around a walking track, patient went to rest by sitting down reading a book and started experiencing the chest pain but at a higher intensity than usual. She was eventually brought to our ER where initial cardiac enzymes and EKG were negative for apparent NH but patient was admitted to our observation unit for repeat cardiac enzymes and monitoring for recurrence of chest pain. Subsequent sets of troponins are negative and patient denies recurrence of chest pain. insights manager is arranging follow-up appointment with her PCP on outpatient basis as well as a cardiac stress test. Patient was instructed to return to ER if chest pain occurred recurs. Procedures Performed: none Results and Findings: Lab Pending Results 05/08/18 16:15: WBC 6.8, RBC 4.32, Hgb 13.5, Hct 38.0, MCV 88.0, MCH 31.3 H, MCHC 35.5, RDW 12.7, Plt Count 249, MPV 9.2, Immature Gran % (Auto) 0.10, Immature Gran # (Auto) 0.01, Neutrophils % 61.1, Lymphocytes % 24.7, Monocytes % 10.7 H, Eosinophils % 2.4, Basophils % 1.0, Nucleated RBC % 0.0, Neutrophils # 4.1, Lymphocytes # 1.67, Monocytes # 0.7, Eosinophils # 0.2, Absolute Basophils 0.1 05/08/18 16:15: Sodium 137, Plasma Sodium 138, Potassium 3.7, Chloride 102, Carbon Dioxide 25.5, Anion Gap 13.2, BUN 14, Creatinine 0.67, Est GFR (Non-Af Amer) 94, BUN/Creatinine Ratio 20.9, Random Glucose 147 H, Calcium 9.0, Calcium Adj for Albumin 8.7, Total Bilirubin 0.6, AST 24, ALT 32, Alkaline Phosphatase 106, Troponin I Less than 0.017, Total Protein 6.8, Albumin 4.0 05/08/18 19:52: Troponin I Less than 0.017 05/09/18 01:24: Troponin I Less than 0.017 Discharge Location: Home Disposition: Home self-care Condition: Good Face to Face Encounter completed per CMS Guidelines: No Discharge Activity: Activity as tolerated Discharge Diet: General/regular food Referrals: Flor Chávez MD [Primary Care Provider] - Additional Patient Instructions (free text): -Please make TCM appointment unless fpc discharge. Thank you! Soraida @ [phone]. F/u with Dr Chávez 3-5 days. Outpatient stress test being arranged. Complete Home Medications List: Complete Home Medication List: RX: Multivitamin [One Daily Multivitamin] 1 ea PO DAILY 09/23/16 acetaminophen 325 mg tablet 325 mg PO Q6H PRN 11/07/17 cholestyramine (with sugar) 4 gram powder for susp in a packet 4 g PO BID #60 ea 01/24/18 rosuvastatin 10 mg tablet 10 mg PO DAILY #90 tab 02/25/18 levothyroxine 50 mcg tablet 50 mcg PO DAILY #90 tab 04/11/18 metoprolol succinate ER 100 mg tablet,extended release 24 hr 100 mg PO DAILY #90 tab 04/11/18 RX: Aspirin 81 mg PO DAILY 05/08/18 RX: Acetaminophen [Tylenol] 1,000 mg PO Q6H PRN tab 05/09/18 RX: Aspirin [Aspirin Chewable] 81 mg PO DAILY tab.chew 05/09/18 Amb Orders for Discharge: NUC Treadmill Stress Test Time Frame: 1 Week, Location: Radiology
[2018-05-09 15:25] VITALS: BP 135/87
[2018-05-09] MEDS ORDERED: ROSUVASTATIN CALCIUM 10 MG TABLET PO SCH (21:00)
[2018-05-09] MEDS ORDERED: ASPIRIN 81 MG TAB.CHEW PO SCH (21:00)
== END 2018-05-09 11:10 | disposition home or self-care (01) ==
LOC: ER 15:55 → MS 15:55
PROVIDERS: ADMIT Family Medicine; ATTEND Family Medicine
DX: R07.9 Chest pain, unspecified
CPT/HCPCS: 36415; 71020; 71046; 80053; 84484; 85025; 93005; 96372; 99285; G0378